=== PATIENT | male | born 1980 | race Two or more races ===

== ENCOUNTER 2022-06-12 19:33 | Emergency (ER) | payer SELFPAY ==
[~2022-06-12] VITALS: Ht 172.7 cm; Wt 100.0 kg
[2022-06-12 21:26] VITALS: BP 146/92
[2022-06-12] MEDS ORDERED: KETOROLAC TROMETH 60MG/2ML VIAL IM ONE (21:30)
[2022-06-12] MEDS ORDERED: TETANUS-DIPTH-ACEL PERTUSSIS 0.5ML SYR Tdap IM ONE (21:45)
[2022-06-12] MEDS ORDERED: IBUP800T26 PO (21:46)
== END 2022-06-12 22:09 | disposition home or self-care (01) ==
LOC: ER 19:33
DX: S51.012A Laceration without foreign body of left elbow, initial encounter (principal); W22.8XXA Striking against or struck by other objects, initial encounter; Y93.89 Activity, other specified; Y92.89 Other specified places as the place of occurrence of the external cause; Y99.8 Other external cause status
CPT/HCPCS: 12001; 73080; 90471; 90715; 96372; 99284; J1885